=== PATIENT | female | born 1950 | race Caucasian/White ===

== ENCOUNTER 2025-03-06 09:58 | Outpatient (AMB) | payer MEDICARE, SELFPAY ==
--- NOTE | 2025-03-06 10:02 | MHC.OFFVIS ---
Vital Signs 03/06/25 10:04 Height 5 ft Weight 178 lb BMI 34.8 BP 161/72 H Blood Pressure Location Lt brachial Position Sitting Respiration 16 Pulse 66 Pulse Source Pulse Oximeter Pulse Oximetry (%) 99 Oxygen Delivery Method Room Air Intake Visit Reasons: Other Chronic Pain Manager Financial Services Required: No Allergies oxycodone Adverse Reaction (Severe, Verified 03/06/25 10:07) n/v Medication List - Last Reconciled 03/06/25 by Hailey Ruiz LPN aspirin (Adult Aspirin Regimen) 81 mg PO DAILY PRN denosumab (Prolia) 60 mg subcut [id number] ibuprofen 200 mg PO Q6H PRN levothyroxine 75 mcg PO DAILY lisinopril 40 mg PO DAILY progesterone micronized 100 mg PO QAM HPI HPI Other Chronic Pain: Details: History of Present Illness The patient is a 75-year-old female presenting with management of chronic pain related to thoracic and lumbar vertebral compression fractures. She has experienced multiple thoracic and lumbar vertebral compression fractures, with four kyphoplasties performed in the past. The pain is described as a stabbing sensation radiating down the right leg, causing an ache in the right leg. The patient's history is notable for osteoporosis, which has contributed to her vertebral fractures between 2013 and 2020. She reports that her pain was initially worse with the fractures but has changed over time, allowing her to walk short distances without canes, although using two canes helps her move faster. Her pain score varies significantly, indicating fluctuating pain levels. She has been diagnosed with lymphedema, although her primary care physician suspects SIADH. The patient has undergone various treatments, including massage therapy, physical therapy, acupuncture, and herbal medicine, which have provided some relief. She has also experienced muscle cramps in her legs and pulsing stabbing pain from her right foot to her trigeminal nerve. Pain Description - Onset: Pain initially worsened with vertebral fractures. - Quality: Stabbing sensation radiating down the right leg, causing an ache. - Location: Thoracic and lumbar spine, radiating to the right leg. - Exacerbating factors: Movement without canes. - Relieving factors: Use of two canes for faster movement. - Interference: Pain affects mobility and daily activities. Physical Exam - Appears afebrile. - Alert and oriented. - Mood and affect appropriate. - Follows and participates in conversation appropriately. - Respiratory effort is unlabored. - Able to transition from sit to stand unassisted. - Ambulates with bilaterally normal heel strike and toe off. - Able to stand and walk on toes and heels. - Significant kyphotic deformity of the thoracic spine Results Review of thoracic spine MRI shows no significant neural foraminal or central canal stenosis. Pain Management - Affect: Pain impacts daily activities and mobility. - Analgesia: Pain score varies significantly; patient has tried multiple therapies including massage, physical therapy, acupuncture, and herbal medicine. - Adverse Effects: None reported from current therapies. - Activities of Daily Living: Pain affects mobility; patient uses canes for assistance. - Aberrant Drug Related Behaviors: None reported. [facility] Medical History (Updated 03/06/25 @ 10:48 by Matt Jacinto MD) SIADH (syndrome of inappropriate ADH production) Osteoporosis Melanoma of skin Hypothyroid Hypertension Hiatal hernia Glaucoma GERD (gastroesophageal reflux disease) Seasonal allergies Bochdalek hernia Alopecia History of adverse effect of anesthesia Physical Exam Vital Signs: Last Vital Signs Pulse 66 03/06/25 10:04 Resp 16 03/06/25 10:04 BP 161/72 H 03/06/25 10:04 Pulse Ox 99 03/06/25 10:04 Oxygen Delivery Method Room Air 03/06/25 10:04 BMI result Body Mass Index 34.8 Assessment & Plan Assessment & Plan (1) Osteoporosis: Code(s): M81.0 - Age-related osteoporosis without current pathological fracture Category: Medical (2) Chronic low back pain: Code(s): M54.50 - Low back pain, unspecified; G89.29 - Other chronic pain Category: Medical Plan Plan - She is not a great candidate for targeted interventional therapy due to the diffuse nature of her symptoms. Discussed the option of spinal cord stimulation for back and leg pain management, including the need for psychological clearance and a trial period. - Provided a brochure on spinal cord stimulation for the patient to review and consider. - Advised continuation of multimodal pain management strategies in the interim. Patient was informed and verbally consented to the use of an ambient scribe for clinic note documentation during this visit. Discussion Notes I had a detailed discussion with the patient regarding the potential use of spinal cord stimulation for her chronic back and leg pain management. We reviewed the process, including the need for psychological clearance and a trial period to assess effectiveness. I provided her with a brochure to review the procedure, including potential risks and benefits. I emphasized the importance of continuing her current multimodal pain management strategies while considering this option. The patient was encouraged to reach out if she decides to proceed with the spinal cord stimulation trial. Patient Instructions - Review the brochure on spinal cord stimulation and consider if it is a suitable option for your pain management. - Continue with current pain management strategies, including any therapies that have provided relief. - Contact the clinic if you decide to proceed with the spinal cord stimulation trial or if you have any questions. Coding Level of Care Code New Pt Level 4 (15439) Diagnoses Osteoporosis M81.0 Chronic low back pain M54.50; G89.29
[2025-03-06 10:04] VITALS: BP 161/72; PULSE 66; RESP 16; O2SAT 99; BMI 34.8
--- OUTSIDE RECORDS SUMMARY | 2025-03-06 10:38 | XMS_ITS | Clinical Summary ---
Author Organization [facility] Address [address] [place] [address] Care Team Providers Care Joy Loader Name Role Phone Cresencio Eden Carlyle VALIENTE Primary Care Provider [phone] Allergies Active Allergy Reactions Criticality Noted Date Comments Adhesive Tape Rash Low 11/26/2017 Imiquimod 04/09/2020 Bee Pollen 07/07/2018 Other 11/26/2017 GLUMA as per pt; mold; manufactured scents; cat dander Penicillins Rash Low 11/24/2019 Peppers 09/14/2019 Seasonal Other (See Comments) 09/14/2019 URI symptoms Sulfa Antibiotics Rash Low 05/21/2015 Medications Medication Sig Dispensed Refills Start Date End Date Status levothyroxine (SYNTHROID, LEVOXYL) tablet 75 mcg Take 75 mcg by mouth. 0 Active lisinopril (PRINIVIL,ZESTRIL) tablet 40 mg 0 09/02/2019 Active estradiol (CLIMARA) 0.0375 MG/24HR APPLY 1 PATCH TOPICALLY EVERY WEEK 0 10/14/2019 Active progesterone (PROMETRIUM) 100 MG capsuleIndications:A ge-related osteoporosis without current pathological fracture,Menopausal sweats Take 1 capsule (100 mg total) by mouth every night at bedtime. 90 capsule 2 08/02/2020 Active aspirin 81 MG chewable tablet Chew 81 mg by mouth daily. 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 Thyroid disease Mother Osteoporosis Sister Thyroid disease Sister Relation Name Status Comments Brother Father Mother Sister Social History Tobacco Use Types Packs/Day Years Used Date Smoking Tobacco: Former Cigarettes 0.3 Q uit: 09/14/1972 Smokeless Tobacco: Never Alcohol Use Standard Drinks/Week Comments No 0 (1 standard drink = 0.6 oz pur e alcohol) Sex and Gender Information Value Date Recorded Sex Assigned at Female 09/12/2019 2:37 PM EST Gender Identity Not on file Sexual Orientation Not on file Last Filed Vital Signs Vital Sign Reading Time Taken Comments Blood Pressure 127/71 10/30/2020 1:48 PM EST Pulse 66 10/30/2020 1:14 PM EST Temperature 36.2 C (97.1 F) 10/30/2020 1:14 PM EST Respiratory Rate 16 10/30/2020 1:14 PM EST Oxygen Saturation 100% 10/30/2020 1:14 PM EST Inhaled Oxygen Concentration - - Weight 80.3 kg (177 lb) 04/09/2020 2:02 PM EDT Height 160 cm (5' 3 ) 04/09/2020 2:02 PM EDT Body Mass Index 31.35 04/09/2020 2:02 PM EDT Plan of Treatment Health Maintenance Due Date Last Done Comments Hepatitis C Screening 1950 COVID-19 Vaccine (#1) 1950 Depression Screening 1962 Preventative Health Evaluation 02/02/1968 Colon Cancer Screening (Colonoscopy) 1995 DTap / Tdap / Td (1 - Tdap) 10/16/2006 10/15/2006 Fall Risk Assessment 2015 Osteoporosis Screening (DEXA Scan) 2015 Pneumococcal Vaccine (2 of 2 - PCV) 2015 12/27/2007 BMI Counseling 09/27/2021 09/27/2020, 09/01, 03/15/2020, Additional history exists RSV Adult > 60+ Yrs or (1 - 1-dose 75+ series) 2025 Influenza Vaccine (#1) 2025 0, 06/05/2019, 05/24/2018, Additional history exists Shingrix-Zoster Vaccine Completed 03/05/20 18, 01/29/2018, 12/28/2017 Hepatitis B Vaccines Aged Out No long er eligible based on patient's age to complete this topic RSV Ped < 20 months Aged Out No longe r eligible based on patient's age to complete this topic Care Teams Joy Loader Relationship Specialty Start Date End Date Eden Dupont DO [address] [place] [address] PCP - General Internal Medicine 09/14/19
--- OUTSIDE RECORDS SUMMARY | 2025-03-06 10:38 | XMS_ITS | Clinical Summary ---
Author Organization [facility] it Address [address] [place] [address] Care Team Providers Care Component Prep Operator Name Role Phone Eden Dupont DO Primary Care Provider [phone] Surgical History Surgery Date Site/Laterality Comments VERTEBROPLASTY 2014 PROCEDURE:VERTEBROPLASTY OTHER SURGICAL HISTORY 2018 PROCEDURE:kyphoplasty OTHER SURGICAL HISTORY 1998 PROCEDURE:melanoma removal Medical History Medical History Date Comments Hypothyroidism (acquired) DX:Hyp othyroidism (acquired) Osteoporosis DX:Osteoporosis History of vertebral fracture 2018 DX :History of vertebral fracture Hyperlipidemia DX:Hyperlipidemi a Hypertension DX:Hypertension Glaucoma DX:Glaucoma Chronic anemia DX:Chronic anemi a Family History Medical History Relation Name Comments Kidney disease Brother Cancer Father Heart disease Mother Hyperlipidemia Mother Hypertension Mother Osteoporosis Mother Thyroid cancer Mother ? Thyroid disease Mother Osteoporosis Sister Thyroid disease Sister Relation Name Status Comments Brother Father Mother Sister Social History Tobacco Use Types Packs/Day Years Used Date Smoking Tobacco: Former Cigarettes Q uit: 09/14/1972 Smokeless Tobacco: Never Alcohol Use Standard Drinks/Week Comments No 0 (1 standard drink = 0.6 oz pur e alcohol) Comments Unknown Sex and Gender Information Value Date Recorded Sex Assigned at Not on file Legal Sex Female 8:15 PM EDT Gender Identity Not on file Sexual Orientation Not on file Obstetrics History Plan of Treatment Health Maintenance Due Date Last Done Comments DTaP,Tdap,and Td Vaccines (1 - Tdap) 1969 Pneumococcal Vaccine: 50+ Ye ars (1 of 1 - PCV) 02/02/2000 Zoster Vaccines (1 of 2) 02/02/2000 COVID-19 Vaccine ( - 2023-2 5 season) 2024 RSV Immunization Adult Patie nts (1 - 1-dose 75+ series) 2025 Influenza Vaccine (#1) 2025 HIB Vaccines Aged Out No longer eligi ble based on patient's age to complete this topic HPV Vaccines Aged Out No longer eligi ble based on patient's age to complete this topic Hepatitis A Vaccines Aged Out No long er eligible based on patient's age to complete this topic Hepatitis B Vaccines Aged Out No long er eligible based on patient's age to complete this topic IPV Vaccines Aged Out No longer eligi ble based on patient's age to complete this topic MMR Vaccines Aged Out No longer eligi ble based on patient's age to complete this topic Meningococcal ACWY Vaccine Aged Out N o longer eligible based on patient's age to complete this topic Meningococcal B Vaccine Aged Out No l onger eligible based on patient's age to complete this topic RSV Immunization Patients Un ben 20 months Aged Out No longer eligible b ased on patient's age to complete this topic Varicella Vaccines Aged Out No longer eligible based on patient's age to complete this topic Care Teams Component Prep Operator Relationship Specialty Start Date End Date Eden Dupont DO [address] [place] [address] [address] [place] [id number] PCP - General Internal Medicine 09/14/19
== END 2025-03-06 10:35 | disposition home or self-care (01) ==
LOC: HO.PMC 09:58
PROVIDERS: PCP Family Medicine; Visit Provider Internal Medicine
DX: M81.0 Age-related osteoporosis without current pathological fracture (principal); M54.50 Low back pain, unspecified; G89.29 Other chronic pain
CPT/HCPCS: 99204

== ENCOUNTER → 2025-03-06 09:58 | Outpatient (BNVA) | payer MEDICARE, SELFPAY | PROVIDERS: PCP Family Medicine; Visit Provider Internal Medicine | DX: M81.0 Age-related osteoporosis without current pathological fracture (principal); M54.59 Other low back pain; G89.29 Other chronic pain; Z79.82 Long term (current) use of aspirin; Z79.899 Other long term (current) drug therapy | CPT/HCPCS: 99202 ==